=== PATIENT | female | born 1955 | race Two or more races ===

== ENCOUNTER 2017-07-18 15:58 | Emergency (ER) | payer BC, OTHER ==
[~2017-07-18] VITALS: Ht 162.6 cm; Wt 73.0 kg
[2017-07-18 16:00] VITALS: BP 134/76
[2017-07-18] MEDS ORDERED: HYDROcodone/APAP 5/325 TABLET ONE (16:08)
[2017-07-18] MEDS ORDERED: HYDROcodone/APAP 5/325 TABLET PO ONE (16:30)
== END 2017-07-18 17:57 | disposition home or self-care (01) ==
LOC: ED 17:51
DX: S40.011A Contusion of right shoulder, initial encounter (principal); S20.211A Contusion of right front wall of thorax, initial encounter; S50.01XA Contusion of right elbow, initial encounter; S70.01XA Contusion of right hip, initial encounter; W19.XXXA Unspecified fall, initial encounter; Y93.89 Activity, other specified; Y92.89 Other specified places as the place of occurrence of the external cause; Y99.8 Other external cause status
CPT/HCPCS: 72110; 99284